=== PATIENT | female | born 1975 | race Caucasian/White ===

== ENCOUNTER 2017-04-06 23:09 | Emergency (ER) | payer BC ==
[~2017-04-06] VITALS: Ht 170.2 cm; Wt 72.5 kg
[~2017-04-06 23:09] MED LIST: AZIT250T94 PO; FLUT9.9S NASAL; IBUP800T25 PO; LEVO125T58; LIOT50TA2 PO; PUMP MISCELLANEOUS MC
[2017-04-06 23:15] VITALS: Ht 170.2 cm; Wt 72.5 kg
[2017-04-07] MEDS ORDERED: KETOROLAC 30 MG INJ IM STA (01:19)
[2017-04-07] MEDS ORDERED: IBUPROFEN 600 MG TAB PO ONE (01:30)
--- NOTE | 2017-04-07 02:29 | RADRPT ---
PROCEDURE: Chest. CLINICAL INDICATION: Chest pain. TECHNIQUE: Single frontal view of the chest was obtained. COMPARISON: None. FINDINGS: The cardiac silhouette is within normal limits. The aortic arch is unremarkable. There is no focal consolidation, vascular congestion or pleural effusion. There is no pneumothorax. IMPRESSION: No evidence for active cardiopulmonary disease. .Hi Momin MD, Date Time Electronically viewed and signed by .Hi Momin MD, on 04/07/2017 02:29 .T/
--- NOTE | 2017-04-07 02:29 | RADRPT ---
PROCEDURE: Right hip. CLINICAL INDICATION: Pain. TECHNIQUE: Two views of the right hip were obtained. COMPARISON: None. FINDINGS: There is no fracture, dislocation or bone destruction. The joint spaces are within normal limits. Bone mineralization is within normal limits. There is no radiopaque foreign body or abnormal calcif ication. IMPRESSION: No evidence of fracture. .Hi Momin MD, Date Time Electronically viewed and signed by .Hi Momin MD, MD on 04/07/2017 02:29 .T/
[2017-04-07] MEDS ORDERED: IBUP-1542 PO (02:38)
--- NOTE | 2017-04-07 02:54 | ERD ---
ER Documentation Chief Complaint Date/Time DATE: 04/07/17 TIME: 02:44 Chief Complaint sp trip and fall landing on her right side, right rib pain, chest wall pain HPI Patient a 42-year-old female who presents emergency department with concerns of right sided rib pain and hip pain after tripping over her dog earlier today. Patient states that on right side. Patient reports some shortness of breath. Patient states is painful to take a deep breath. Patient denies any chest pain nausea, vomiting, left upper extremity pain diaphoresis.. Patient denies any head injury, acute confusion, excessive sleepiness, knockout or loss of consciousness. Patient recalls all events of the injury. Patient is speaking without any difficulty. Patient is ambulating without any difficulty. ROS All systems reviewed and are negative except as per history of present illness. Medications Home Meds Active Scripts Ibuprofen* (Motrin*) 600 Mg Tab, 600 MG PO Q6, #30 TAB Prov:ROD PATTON PA-C 04/07/17 Fluticasone Propionate (Flonase Allergy Relief) 9.9 Ml [place].susp, 1 SPRAY NASAL BID for 5 Days, BOTTLE TO EACH NOSTRIL Prov:ELISA DE ANDA MD 07/12/15 Azithromycin* (Zithromax*) 250 Mg Tablet, 250 MG PO .ZPACK DIRECTED, #6 TAB TAKE 500 MG (2 TABS) THE FIRST DAY THEN 250 MG (1 TAB) DAYS 2-5 Prov:ELISA DE ANDA MD 07/12/15 Ibuprofen* (Motrin*) 800 Mg Tab, 800 MG PO Q6H Y for PAIN AND OR ELEVATED TEMP, #30 TAB Prov:ELISA DE ANDA MD 07/12/15 Reported Medications Miscellaneous* PUMP (Miscellaneous* PUMP) 1 Each Pump.resvr, 1 EACH MC DAILY for CICLOMEX 15MG, EA 09/30/14 Liothyronine Sodium* (Cytomel*) 50 Mcg Tablet, 50 MCG PO DAILY, TAB 09/30/14 Levothyroxine Sodium (Levothroid) 125 Mcg Tablet, DAILY 06/06/13 Allergies Allergies: Coded Allergies: cephalexin (Verified Allergy, Unknown, 07/12/15) PMhx/Soc History of Surgery: Yes (Thyroidectomy,Appy,Ovarian Cyst Removed,Explore Lap ) Anesthesia Reaction: No Hx Neurological Disorder: No Hx Respiratory Disorders: No Hx Cardiac Disorders: No Hx Psychiatric Problems: No Hx Miscellaneous Medical Probl: Yes (Thyroid CA,Anemia,Endometriosis, Nephrolithiasis ) Hx Alcohol Use: No Hx Substance Use: No Hx Tobacco Use: No Physical Exam Vitals Vital Signs Date Time Temp Pulse Resp B/P Pulse Ox O2 Delivery O2 Flow Rate FiO2 04/06/17 23:15 98.2 86 20 141/72 99 Physical Exam GENERAL: Well-developed, well-nourished female. Appears in no acute distress. Speaking in full sentences. No abdominal retractions, no nasal flaring. HEAD: Normocephalic, atraumatic. EYES: Pupils are equally reactive bilaterally. EOMs grossly intact. No conjunctival erythema. No periorbital ecchymosis bilaterally. ENT: Moist mucous membranes. No uvula deviation. No kissing tonsils. NECK: Supple. No meningismus. Normal range of motion of the neck. No cervical tenderness noted. LUNG: Clear to auscultation bilaterally. No rhonchi, wheezing, rales or coarse breath sounds. CHEST WALL: No obvious deformities. No step-offs. No ecchymosis or swelling noted to bilateral rib cage. Patient tender to palpation of the right rib cage with minimal palpation. HEART: Regular rate and rhythm. No murmurs, rubs or gallops. ABDOMEN: No scars, ecchymosis or rashes noted. Soft, nontender, and nondistended. Positive bowel sounds in all four quadrants. No rebound tenderness , no guarding. (-) McBurney's point tenderness. RIGHT HIP: No ecchymosis. No swelling. Tender to palpation of iliac crest with minimal palpation. BACK: No midline tenderness. EXTREMITIES: Equal pulses bilaterally. No peripheral clubbing, cyanosis or edema. No unilateral leg swelling. NEUROLOGIC: Alert and oriented x3, cooperative. Mood and affect appropriate to situation. Cranial nerves II through XII are grossly intact. Normal speech. Motor exam: 5/5 strength in upper and lower extremities. Sensory exam: Sensation intact to light touch on all four extremities. Cerebellar function exam: No dysmetria on [id number] test. Steady gait. No pronator drift. SKIN: Normal color. Warm and dry. No rashes or lesions. Results 24 hrs Current Medications Medications (Trade) Dose Ordered Sig/Camila Route PRN Reason Start Time Stop Time Status Last Admin Dose Admin Ibuprofen (Motrin) 600 mg ONCE ONCE PO 04/07/17 01:30 04/07/17 01:30 DC Ketorolac Tromethamine (Toradol) 30 mg ONCE STAT IM 04/07/17 01:19 04/07/17 01:21 DC 04/07/17 01:31 Procedures/MDM ED COURSE: The patient was stable throughout ED course. I kept the patient and/or family informed of laboratory and diagnostic imaging results throughout the ED course. EKG: Read by Dr. Mcarthur, attending physician. EKG shows normal sinus rhythm at a rate of 79 bpm. No arrhythmias, acute ST elevations or T wave changes were noted. DIAGNOSTIC IMAGING: Read by radiologist. DIAGNOSTIC IMAGING REPORT Patient: MARA OREILLY : 1975 Age: 42 Sex: F MR #: [id number] DOS: 04/07/17103 Ordering MD: ROD PATTON PA-C Location: [facility] Room/Bed: PROCEDURE: Chest. CLINICAL INDICATION: Chest pain. TECHNIQUE: Single frontal view of the chest was obtained. COMPARISON: None. FINDINGS: The cardiac silhouette is within normal limits. The aortic arch is unremarkable. There is no focal consolidation, vascular congestion or pleural effusion. There is no pneumothorax. IMPRESSION: No evidence for active cardiopulmonary disease. .Hi Momin MD, MD Date Time Electronically viewed and signed by .Hi Momin MD, MD on 04/07/2017 02:29 .T/ CC: ROD PATTON PA-C Patient: MARA OREILLY : 1975 Age: 42 Sex: F MR #: [id number] DOS: 04/07/17103 Ordering MD: ROD PATTON PA-C Location: [facility] Room/Bed: PROCEDURE: Right hip. CLINICAL INDICATION: Pain. TECHNIQUE: Two views of the right hip were obtained. COMPARISON: None. FINDINGS: There is no fracture, dislocation or bone destruction. The joint spaces are within normal limits. Bone mineralization is within normal limits. There is no radiopaque foreign body or abnormal calcification. IMPRESSION: No evidence of fracture. .Hi Momin MD, MD Date Time Electronically viewed and signed by .Hi Momin MD, MD on 04/07/2017 02:29 .T/ CC: ROD PATTON PA-C PROCEDURES: None. MEDICATIONS GIVEN: Toradol IM Patient tolerated medication well with no adverse reactions. Patient reported improvement in pain. MEDICAL DECISION MAKING: Patient is a 42-year-old female who presents with right rib pain and right hip pain after tripping over her dog earlier today. Vital signs were reviewed. Patient is afebrile. Patient was not hypoxic. Patient was hemodynamically stable. Urine test was negative. Patient was given Toradol for pain. X-ray imaging of the chest was unremarkable. X-ray imaging of the right hip was unremarkable. At this time the patient's presentation is most consistent with a rib contusion and right hip pain. Low suspicion for rib fracture, pneumothorax, collapsed lung, acute respiratory failure, ACS, pericarditis, hip fracture, hip dislocation, closed head injury. PRESCRIPTION: Ibuprofen DISCHARGE: At this time, patient is stable for discharge and outpatient management. Patient was given a copy of all imaging studies obtained today. I have instructed the patient to follow-up with his/her primary care physician in 1-2 days. I have discussed with the patient the possibility of needing to see a specialist for further workup and imaging studies if symptoms persist. I have instructed the patient to promptly return to the ER for any new or worsening symptoms including increased pain, fever, nausea, vomiting, weakness or LOC. The patient and/or family expressed understanding of and agreement with this plan. All questions were answered. Home care instructions were provided. Disclaimer: Inadvertent spelling and grammatical errors are likely due to EHR/ dictation software use and do not reflect on the overall quality of patient care. Also, please note that the electronic time recorded on this note does not necessarily reflect the actual time of the patient encounter. Departure Diagnosis: Primary Impression: Contusion of rib on right side Encounter type: initial encounter Qualified Code: S20.211A - Contusion of rib on right side, initial encounter Additional Impression: Right hip pain Condition: Stable Patient Instructions: Rib Contusion Additional Instructions: Call your primary care doctor TOMORROW for an appointment during the next 1-2 days.See the doctor sooner or return here if your condition worsens before your appointment time. ROD PATTON PA-C Apr 07, 2017 02:54
== END 2017-04-07 03:00 | disposition home or self-care (01) ==
LOC: FTE 23:09
DX: S20.211A Contusion of right front wall of thorax, initial encounter (principal); S79.911A Unspecified injury of right hip, initial encounter; W01.0XXA Fall on same level from slipping, tripping and stumbling without subsequent striking against object, initial encounter; Y92.9 Unspecified place or not applicable; Z85.850 Personal history of malignant neoplasm of thyroid
CPT/HCPCS: 71010; 73510; 93005; 96372; 99284; J1885

== ENCOUNTER 2017-07-09 17:40 | Emergency (ER) | END 2017-07-09 17:45 | disposition home or self-care (01) ==

== ENCOUNTER → 2018-10-12 | Outpatient (CLI) | payer BC ==
[~2018-10-12] MED LIST changes: +AZIT250T PO; -AZIT250T94 PO; +GUAI-637 PO; +IBUP-1542 PO; -IBUP800T25 PO; +IBUP800T48 PO; +NASO17 NASAL
== END | disposition home or self-care (01) ==
LOC: VAS 15:11
PROVIDERS: ATTEND Internal Medicine
DX: R22.43 Localized swelling, mass and lump, lower limb, bilateral (principal)
CPT/HCPCS: 93970

== ENCOUNTER 2018-12-25 18:50 | Emergency (ER) | payer BC ==
[~2018-12-25] VITALS: Ht 175.3 cm; Wt 74.0 kg
[2018-12-25 18:54] VITALS: BP 114/78; PULSE 116; RESP 20; Ht 175.3 cm; Wt 74.0 kg
[2018-12-25] MEDS ORDERED: BENZ-6 PO (20:05)
[2018-12-25] MEDS ORDERED: IBUP-1542 PO (20:05)
[2018-12-25] MEDS ORDERED: AZIT250T PO (20:05)
--- NOTE | 2018-12-25 20:10 | ERD ---
ER Documentation Chief Complaint Chief Complaint SIERRA WITH COUGH/SORE THROAT/CONGESTION/SINUS PRESSURE X 4 DAYS HPI Patient is a 43-year-old female, past medical history of hypothyroidism, pr esents the ER for concerns of sinus congestion, sinus headache, sore throat, ear pain x4 days. Patient denies any fevers or chills. Patient states her cough is productive with occasional yellow-green sputum production. Patient also reports yellow-green nasal congestion. Patient denies any chest pain or shortness of breath. Patient has no neck pain or neck stiffness. Patient states is been taking Zyrtec, Benadryl and exjq-[id number]-egscqyo cough medicine with minimal alleviation of symptoms. Patient reports history is a sick contact. No recent travel. ROS All systems reviewed and are negative except as per history of present illness. Medications Home Meds Active Scripts Ibuprofen* (Motrin*) 600 Mg Tab, 600 MG PO Q6, #30 TAB Prov:ROD PATTON 12/25/18 Benzonatate* (Tessalon Perle*) 100 Mg Capsule, 100 MG PO Q8H PRN for COUGH, #30 CAP Prov:ROD PATTON 12/25/18 Azithromycin* (Zithromax*) 250 Mg Tablet, 250 MG PO .ZPACK DIRECTED, #6 TAB TAKE 500 MG (2 TABS) THE FIRST DAY THEN 250 MG (1 TAB) DAYS 2-5 Prov:ROD PATTON-Pedro 12/25/18 Ibuprofen* (Motrin*) 600 Mg Tab, 600 MG PO Q6, #30 TAB Prov:ALYSE SCHILLING 07/09/17 Guaifenesin* (Robitussin*) 100 Mg/5 Ml Syrup, 200 MG PO Q6H PRN for COUGH for 3 Days, ML Prov:ALYSE SCHILLING 07/09/17 Mometasone Furoate* (Nasonex*) 50 Mcg/[place] - 17 Gm [place].pump, 1 SPRAY NASAL BID, #1 BOTTLE IN EACH NOSTRIL Prov:ALYSE SCHILLING 07/09/17 Azithromycin* (Zithromax*) 250 Mg Tablet, 250 MG PO .ZPACK DIRECTED, #6 TAB TAKE 500 MG (2 TABS) THE FIRST DAY THEN 250 MG (1 TAB) DAYS 2-5 Prov:ALYSE SCHILLING 07/09/17 Ibuprofen* (Motrin*) 600 Mg Tab, 600 MG PO Q6, #30 TAB Prov:ROD PATTON PA-C 04/07/17 Fluticasone Propionate (Flonase Allergy Relief) 9.9 Ml [place].susp, 1 SPRAY NASAL BID for 5 Days, BOTTLE TO EACH NOSTRIL Prov:ELISA DE ANDA MD 07/12/15 Azithromycin* (Zithromax*) 250 Mg Tablet, 250 MG PO .ZPACK DIRECTED, #6 TAB TAKE 500 MG (2 TABS) THE FIRST DAY THEN 250 MG (1 TAB) DAYS 2-5 Prov:ELISA DE ANDA MD 07/12/15 Ibuprofen* (Motrin*) 800 Mg Tab, 800 MG PO Q6H PRN for PAIN AND OR ELEVATED TEMP, #30 TAB Prov:ELISA DE ANDA MD 07/12/15 Reported Medications Miscellaneous* PUMP (Miscellaneous* PUMP) 1 Each Pump.resvr, 1 EACH MC DAILY for CICLOMEX 15MG, EA 09/30/14 Liothyronine Sodium* (Cytomel*) 50 Mcg Tablet, 50 MCG PO DAILY, TAB 09/30/14 Levothyroxine Sodium (Levothroid) 125 Mcg Tablet, DAILY 06/06/13 Allergies Allergies: Coded Allergies: cephalexin (Verified Allergy, Unknown, 07/12/15) Uncoded Allergies: SULFA (Allergy, Intermediate, RASH, 12/25/18) PMhx/Soc History of Surgery: Yes (Thyroidectomy,Appy,Ovarian Cyst Removed,Explore Lap ) Anesthesia Reaction: No Hx Neurological Disorder: No Hx Respiratory Disorders: No Hx Cardiac Disorders: No Hx Psychiatric Problems: No Hx Miscellaneous Medical Probl: Yes (Thyroid CA,Anemia,Endometriosis,Nephrolithiasis ) Hx Alcohol Use: No Hx Substance Use: No Hx Tobacco Use: No Smoking Status: Never smoker FmHx Family History: No diabetes Physical Exam Vitals Vital Signs Date Temp Pulse Resp B/P (MAP) Pulse Ox O2 O2 Flow FiO2 Time Delivery Rate 12/25/18 99.5 116 20 114/78 96 18:54 (90) Physical Exam GENERAL: Well-developed, well-nourished female. Appears in no acute distress. Speaking in full sentences. HEAD: Normocephalic, atraumatic. No deformities or ecchymosis. EYE: Pupils equal, round, and reactive to light. EOMs intact. No conjunctival erythema. No eye discharge. ENT: External ear without any masses or tenderness. Auditory canals clear bilaterally. TM visualized bilaterally, non-erythematous, non-bulging. Nasal congestion noted on exam. + TTP of maxillary and frontal sinuses. Oropharynx is pink without any tonsillar erythema or exudates. No uvula deviation. No kissing tonsils. NECK: Supple. No meningismus. Normal ROM of the neck. LUNG: Clear to auscultation bilaterally. No rhonchi, wheezing, rales or coarse breath sounds. HEART: Tachycardic. No murmurs, rubs or gallops. EXTREMITES: Equal pulses bilaterally. No peripheral clubbing, cyanosis or edema. No unilateral leg swelling. NEUROLOGIC: Alert and oriented to person, place and time. Moving all four extremities. 5/5 strength in all extremities. Normal speech. Steady gait. SKIN: Normal color. Warm and dry. No rashes or lesions. Procedures/MDM MEDICAL DECISION MAKING: This is a 43-year-old female who presents the ER for concerns of nasal congestion, sore throat, cough x4 days. Vital signs were reviewed. Patient was afebrile. Patient was not hypoxic. Physical exam vitals are concerning for sinusitis. Patient will be treated with course of naproxen patient was also given cough medication. pneumonia, meningitis, otitis externa, acute otitis media, strep pharyngitis, epiglottitis or peritonsillar abscess. Patient was nontoxic, [id number] prior to discharge. PRESCRIPTIONS: Ibuprofen, Z-Elier, Tessalon Perles DISCHARGE: At this time, patient is stable for discharge and outpatient management. Supportive therapies such as OTC throat lozenges, salt water gurgles, popsicles and jello discussed. I have instructed the patient to follow-up with his/her primary care physician in 1-2 days. I have instructed the patient to promptly return to the ER for any new or worsening symptoms including increased pain, swelling, fever, nausea, vomiting, weakness or difficulty breathing. The patient and/or family expressed understanding of and agreement with this plan. All questions were answered. Home care instructions were provided. Disclaimer: Inadvertent spelling and grammatical errors are likely due to EHR/dictation software use and do not reflect on the overall quality of patient care. Also, please note that the electronic time recorded on this note does not necessarily reflect the actual time of the patient encounter. Departure Diagnosis: Primary Impression: Sinusitis Sinusitis location: unspecified location Chronicity: unspecified Qualified Codes: J32.9 - Chronic sinusitis, unspecified Additional Impression: Cough Condition: Fair Referrals: [facility] YOU HAVE RECEIVED A MEDICAL SCREENING EXAM AND THE RESULTS INDICATE THAT YOU DO NOT HAVE A CONDITION THAT REQUIRES URGENT TREATMENT IN THE EMERGENCY DEPARTMENT. FURTHER EVALUATION AND TREATMENT OF YOUR CONDITION CAN WAIT UNTIL YOU ARE SEEN IN YOUR DOCTORS OFFICE WITHIN THE NEXT 1-2 DAYS. IT IS YOUR RESPONSIBILITY TO MAKE AN APPOINTMENT FOR FOLOW-UP CARE. IF YOU HAVE A PRIMARY DOCTOR --you should call your primary doctor and schedule an appointment IF YOU DO NOT HAVE A PRIMARY DOCTOR YOU CAN CALL OUR PHYSICIAN REFERRAL HOTLINE AT IF YOU CAN NOT AFFORD TO SEE A PHYSICIAN YOU CAN CHOSE FROM THE FOLLOWING [facility] [address] [facility]. [facility] [address] [facility] [address] [facility] [facility] [address] [facility] [address] [facility]. [facility]. [address] [facility]. [facility] YOU HAVE RECEIVED A MEDICAL SCREENING EXAM AND THE RESULTS INDICATE THAT YOU DO NOT HAVE A CONDITION THAT REQUIRES URGENT TREATMENT IN THE EMERGENCY DEPARTMENT. FURTHER EVALUATION AND TREATMENT OF YOUR CONDITION CAN WAIT UNTIL YOU ARE SEEN IN YOUR DOCTORS OFFICE WITHIN THE NEXT 1-2 DAYS. IT IS YOUR RESPONSIBILITY TO MAKE AN APPOINTMENT FOR FOLOW-UP CARE. IF YOU HAVE A PRIMARY DOCTOR --you should call your primary doctor and schedule and appointment IF YOU DO NOT HAVE A PRIMARY DOCTOR YOU CAN CALL OUR PHYSICIAN REFERRAL HOTLINE AT . IF YOU CAN NOT AFFORD TO SEE A PHYSICIAN YOU CAN CHOSE FROM THE FOLLOWING [facility]: [facility] [address] [place] [address] [facility] [address] [place] [address] [facility] [address] [place] [address] Additional Instructions: Call your primary care doctor TOMORROW for an appointment during the next 1-2 days.See the doctor sooner or return here if your condition worsens before your appointment time. ROD PATTON PA-C Dec 25, 2018 20:10
== END 2018-12-25 20:19 | disposition home or self-care (01) ==
LOC: FTE 18:50
DX: J32.9 Chronic sinusitis, unspecified (principal); Z85.850 Personal history of malignant neoplasm of thyroid
CPT/HCPCS: 99283